=== PATIENT | female | born 1940 | race Native Hawaiian/Other Pacific Islander ===

== ENCOUNTER 2018-10-26 08:44 | Outpatient (CLI) | payer MEDICARE | END 2018-10-26 08:45 | disposition home or self-care (01) | LOC: C.LAB 08:44 | DX: E11.9 Type 2 diabetes mellitus without complications (principal) ==

== ENCOUNTER 2019-01-25 08:28 | Outpatient (CLI) | payer MEDICARE | END 2019-01-25 08:29 | disposition home or self-care (01) | LOC: C.LAB 08:28 | DX: E11.9 Type 2 diabetes mellitus without complications (principal) ==